=== PATIENT | male | born 1950 | race Caucasian/White ===

== ENCOUNTER 2017-03-16 08:56 | Outpatient (CLI) | payer MEDICARE, OTHER ==
--- NOTE | 2017-03-16 12:19 | MRI ---
MRI OF THE LEFT KNEE WITHOUT CONTRAST: INDICATION: Left knee pain. COMPARISON: Left knee radiograph dated 10/18/11. FINDINGS: There is a large focus of near full-thickness delamination involving the lateral patellar facet measu ring 2 cm on image 19 of series 3. There are small marginal osteophytes affecting all major compartm ents of the knee. There is diffuse moderate chondrosis involving the medial femorotibial joint carmelina rtment. There is a complex degenerative-type tear with a predominant horizontal component involving the body and posterior horn of the medial meniscus. There is a horizontally oriented tear involving the body of the lateral meniscus. The ACL, PCL, MCL, LCLC, and extensor mechanism are intact. The IT band and popliteus appear within normal limits. No Don's cyst is evident. No enlarged lymph nodes are present. IMPRESSION: 1. Mild osteoarthrosis of the left knee. 2. Medial and lateral meniscal tears. 3. Near full-thickness area of delamination involving the lateral patellar facet measuring up to 2 c m. POS: [facility]
== END 2017-03-16 08:57 | disposition home or self-care (01) ==
LOC: SCSMRI 08:56
PROVIDERS: ATTEND Orthopaedic Surgery
DX: M25.562 Pain in left knee (principal); M17.12 Unilateral primary osteoarthritis, left knee; M23.201 Derangement of unspecified lateral meniscus due to old tear or injury, left knee; M23.204 Derangement of unspecified medial meniscus due to old tear or injury, left knee

== ENCOUNTER 2017-04-21 09:42 | Outpatient (CLI) | payer MEDICARE ==
[2017-04-21 14:45] LABS: Hemoglobin 16.2 g/dL (14.0-18.0); Mean Corpuscular HGB CONC 33.5 g/dL (32.0-36.0); Mean Corpuscular Hemoglobin 31.6 pg (27.0-31.0); Mean Corpuscular Volume 94.2 fl (80.0-94.0); Mean Platelet Volume 10.2 fL (7.4-10.4); Platelet Count 184 thou/uL (130-400); RBC Distribution Width 12.1 % (11.5-14.5); Red Blood Cell (RBC) Count 5.13 mill/uL (4.70-6.10); White Blood Cell (WBC) Count 6.8 thou/uL (4.8-10.8)
[2017-04-21 14:50] LABS: Prothrombin Time 12.7 SEC (12.0-14.7)
[2017-04-21 14:54] LABS: Bilirubin Negative (Negative); Blood, Urine Negative (Negative); Clarity CLEAR (Clear); Glucose, Urine (Dipstick) Negative (Negative); Leukocyte Negative (Negative); Nitrite Negative (Negative); Protein, Urine (Dipstick) Negative (Neg-Trace); Specific Gravity, Urine 1.017 (1.002-1.036); Urobilinogen 0.2 mg/dL (0.2-1.0)
[2017-04-21 15:03] LABS: Bacteria/HPF None Seen HPF (None Seen); Hyaline Casts/LPF 0-3 HYALINE CAST LPF (0-3 Hyaline); Pathc Cast-AUWi Flag 0.13 (0-2.49); RBC/HPF 0-3 HPF (0-3); Squamous Epithelial None Seen HPF (0-3); WBC/HPF None Seen HPF (0-3)
[2017-04-21 15:09] LABS: Anion Gap 16 mmol/L (10-20); BUN (Urea Nitrogen) 14 mg/dL (8.4-25.7); Calc. Creatinine Clearance 0 mL/min (70-130); Calcium 10.5 mg/dL (7.8-10.44); Carbon Dioxide 29 mmol/L (23-31); Chloride 102 mmol/L (98-107); Estimated GFR-MDRD Greater than 90; Glucose 84 mg/dL (80-115); Potassium 4.3 mmol/L (3.5-5.1); Sodium 143 mmol/L (136-145)
--- NOTE | 2017-05-15 16:37 | EKG ---
Test Reason : Blood Pressure : / mmHG Vent. Rate : 051 BPM Atrial Rate : 051 BPM P-R Int : 202 ms QRS Dur : 100 ms QT Int : 462 ms P-R-T Axes : 043 -02 018 degrees QTc Int : 425 ms Sinus bradycardia Minimal voltage criteria for LVH, may be normal variant Cannot rule out Anterior infarct , age undetermined Abnormal ECG When compared with ECG of 22-OCT-2011 08:52, No significant change was found Confirmed by DR. Tito CENTENO ([id number]) on 05/15/2017 4:37:00 PM Referred By: JUVENAL Confirmed By:DR. Tito CENTENO
== END 2017-04-21 09:43 | disposition home or self-care (01) ==
LOC: LABBT 09:42
PROVIDERS: ATTEND Orthopaedic Surgery
DX: Z01.818 Encounter for other preprocedural examination (principal); M17.12 Unilateral primary osteoarthritis, left knee
CPT/HCPCS: 80048; 81001; 85027; 85610; 86850; 86900; 86901; 87081; 93005; 93010

== ENCOUNTER 2017-04-27 07:05 | Day surgery (SDC) | payer MEDICARE ==
[2017-04-21 12:34] VITALS: BMI 30.9
--- NOTE | 2017-04-23 12:45 | HP ---
HISTORY OF PRESENT ILLNESS: The patient is a 67-year-old male with a several year history of progres sive problems with his left knee. He underwent arthroscopy and partial lateral meniscectomy by [place] proximately 6 years ago. Initially did well, but has recently developed progressive problems especia lly over the past several months. He has had no specific injury, but he has been active and he has h ad progressive symptoms, which have persisted despite rest, restriction of activities, anti-inflammat ory medications, and cortisone injections. His primary complaint is pain. He has had no definite ca tching, popping, or meniscal symptoms. The pain is now interfering with day-to-day activities includ ing walking and change in position. PAST MEDICAL HISTORY: The patient has history of type 2 diabetes, hypertension, and prostate cancer in remission. CURRENT MEDICATIONS: Include lisinopril, amlodipine, pantoprazole, Omnaris, metformin, bisoprolol, a nd rosuvastatin. ALLERGIES: He has no known allergies. FAMILY HISTORY: Otherwise unremarkable. SOCIAL HISTORY: Otherwise unremarkable. REVIEW OF SYSTEMS: Otherwise unremarkable. PHYSICAL EXAMINATION: GENERAL: Healthy male. HEENT: Unremarkable. NECK: Supple. CHEST: Clear. HEART: Regular rate and rhythm. ABDOMEN: Soft, nontender. RECTAL/GENITAL: Deferred. EXTREMITIES: Pertinent findings are of the left lower extremity. There is no pain with range of mot ion of the left hip. Examination of the left knee reveals puffiness, but no definite effusion. Ther e is tenderness and crepitus over the medial joint line. There are healed arthroscopy puncture sites . Range of motion is 0-120 degrees. Pulses 1+ with slight left antalgic gait. There is no instabil ity. Neurovascular exam is intact. LABORATORY AND X-RAY FINDINGS: X-rays of the left knee reveal tricompartmental degenerative changes and chondrocalcinosis. MRI scan of the left knee reveals degenerative medial and lateral meniscal te ars and significant degenerative changes of the medial compartment and patellofemoral joint. IMPRESSION: 1. Degenerative arthritis, left knee. 2. History of hypertension. 3. History of type 2 diabetes. 4. History of prostate cancer. PLAN: Left total knee replacement. The nature of the surgery, length of recovery, and potential com plications such as infection, loss of motion, incomplete relief, thromboembolic phenomenon, neurovasc ular injury, delayed wound healing, possible transfusion, and need for revision have been discussed i n detail with the patient and his .
[2017-04-27] MEDS ORDERED: Midazolam HCl 2 mg/2 ml Vial ONE (08:09)
[2017-04-27] MEDS ORDERED: Fentanyl 100 MCG/2 ML VIAL ONE ×4 (08:09→12:59)
[2017-04-27] MEDS ORDERED: CEFAZOLIN/Water 2 GM/20 ML SYRINGE ONE (08:13)
[2017-04-27] MEDS ORDERED: Tranexamic Acid 1,000 MG/100 ML BAG ONE ×2 (08:13→11:52)
[2017-04-27] MEDS ORDERED: Vancomycin HCl 1.5 GM in Sodium Chloride 0.9% 250 ML 300 ML IVPB SCH ×2 (08:30→21:00)
[2017-04-27] MEDS ORDERED: HYDROcodone/Acetaminophen 5/325 mg Tablet PO PRN ×2 (09:21)
[2017-04-27] MEDS ORDERED: Ketorolac Tromethamine 30 MG/ML VIAL IVP PRN ×2 (09:21→12:34)
[2017-04-27] MEDS ORDERED: traMADol HCl 50 MG TAB PO PRN ×3 (09:21→09:22)
[2017-04-27] MEDS ORDERED: Ondansetron HCl/PF 4 MG/2 ML Vial IVP PRN ×4 (09:21→12:34)
[2017-04-27] MEDS ORDERED: Zolpidem Tartrate 5 MG TAB PO PRN ×3 (09:21→12:34)
[2017-04-27] MEDS ORDERED: Promethazine HCl 25 MG/ML VIAL IM PRN ×3 (09:21→12:34)
[2017-04-27] MEDS ORDERED: Ropivacaine 0.2% 550 ML 550 ML NERVE BLCK SCH (09:21)
[2017-04-27] MEDS ORDERED: Promethazine HCl 25 MG/ML VIAL SLOW IVP PRN ×2 (09:22→10:44)
[2017-04-27] MEDS ORDERED: HYDROcodone/Acetaminophen 10/325 mg Tablet PO PRN ×2 (09:22)
[2017-04-27] MEDS ORDERED: Acetaminophen 325 MG TAB PO PRN (09:22)
[2017-04-27] MEDS ORDERED: Fentanyl 100 MCG/2 ML VIAL SLOW IVP PRN ×2 (09:22)
[2017-04-27] MEDS ORDERED: diphenhydrAMINE 25 MG CAP PO PRN ×2 (09:22→12:34)
[2017-04-27] MEDS ORDERED: Fentanyl 100 MCG/2 ML VIAL IV PRN (09:22)
[2017-04-27] MEDS ORDERED: Bupivacaine/Epinephrine 0.25% 30 ML VIAL ONE (09:24)
[2017-04-27] MEDS ORDERED: Lidocaine 1% w/Epinephrine 1:200K 30 ML VIAL ONE (09:24)
--- NOTE | 2017-04-27 11:44 | OP ---
DATE OF PROCEDURE: 04/27/2017 PREOPERATIVE DIAGNOSIS: End-stage tricompartmental osteoarthritis, left knee. POSTOPERATIVE DIAGNOSIS: End-stage tricompartmental osteoarthritis, left knee. OPERATIVE PROCEDURE: Cemented cruciate-sparing computer-assisted navigated left total knee arthropla sty. SURGEON: Marv Staples M.D. FARM ASSISTANT: Long Ray PA-C. ANESTHESIA: General via laryngeal mask airway augmented with indwelling abductor canal, peripheral b lock and a single shot sciatic block and local infiltration with Marcaine. COMPONENTS USED: [employer] Triathlon size 5 cruciate-sparing cemented femoral component, s ize 5 universal cemented primary tibial baseplate, 9 mm polyethylene fixed bearing insert, and A32 pa tellar button. TOURNIQUET TIME: 80 minutes at 300 mmHg. FINDINGS: End-stage severe degenerative tricompartmental disease, bone on bone arthrosis, periarticu lar osteophyte formation, large serous effusion, hypertrophic synovium. DRAINS: None. SPECIMENS: None. COMPLICATIONS: None. COUNTS: Correct. ESTIMATED BLOOD LOSS: Less than 100 mL. INDICATIONS FOR SURGERY: Akash is a 67-year-old white male who has had progressive knee pain ampli fied with standing and walking for the last 5-7 years. He has failed conservative management and ngoc cted to proceed with total knee arthroplasty as definitive treatment for his pain. PROCEDURE IN DETAIL: After informed consent was obtained in the preoperative holding area. The parisa ent was taken to the operative suite where general anesthesia was induced. Once adequate level of ge neral anesthesia was obtained, the patient was positioned and a well-padded tourniquet was placed marla und the left proximal thigh. The left lower extremity was then prepped and draped in the usual steri le fashion. Prior to exsanguination, a time out was called and all members of the surgical team agre ed upon site, surgeon, and patient. The extremity was then exsanguinated and the tourniquet was rais ed. A midline longitudinal incision was then made directly over the patella extending two fingerbrea dths above the superior pole of the patella and two fingerbreadths inferior to the inferior patellar pole of the patella. Deeper subcutaneous layers were dissected sharply and local bleeding was contro lled with Bovie electrocautery. A quad tendon longitudinal split was then made sharply and a median parapatellar arthrotomy was carried out both sharp and with Bovie electrocautery, carried down to one fingerbreadth medial to the tibial tubercle. The knee was then placed into flexion and the patella was everted nicely, and a copious fat pad ectomy was performed allowing for greater exposure of the t ibia. The computer-assisted distal femoral fiducial was then placed and pinned firmly, and the dista l femoral cutting guide was pinned firmly into place. The oscillating saw was then used to remove th e appropriate amount of bone. The 4-in-1 cutting block was then placed on the distal femur and the o scillating saw was used to remove the appropriate amount of bone off of the anterior, posterior, and chamfer cuts. After completion of the chamfer cuts, the box-cutting guide was placed, malleted firml y into place and pinned securely, and an osteotome was used to make the distal cut and the oscillatin g saw was then used to make the medial and lateral box cuts. This came out quite nicely and was brad megha with Bovie electrocautery, and the oscillating saw was then used to broaden the lateral medial wa lls of the box cut. After completion of bone cuts, the anterior cruciate ligament was resected sharp ly and the posterior cruciate ligament retractor was placed and the tibia was subluxed for better exp osure. Partial meniscectomies were carried out, and the tibial computer-assisted fiducial was pinned , and the cutting guide was placed. Oscillating saw was then used to remove the bone with Hohmann re tractors used to take care and protect the collateral ligaments. After the tibial resection was perf ormed, a laminar electrical research engineer was placed in between the freshened bone cuts. The knee placed at 90 degre es and further bilateral meniscectomies were carried out, and the curved osteotome and curettage was used to remove any excess bone spurs in the posterior compartment. The trial femoral component, tibi al baseplate were placed with the appropriate polyethylene trial insert with an appropriate polyethyl abel spacer and patellar button. The knee was taken through full range of motion with flexion and ext ension from 0-90 degrees and patellar broach squarely in the trochlea without any squinting or sublu xation noted. The knee was also stable to varus and valgus stressing at 0, 15, 45, and 90 degrees of flexion. The drawer was negative. All trial components were then removed and the keel punch was use d to provide the appropriate defect in the tibia with a mallet. The freshened bone cuts were copious ly irrigated with pulsatile lavage of about 1-1/2 liters to remove all excess debris. The freshened bone cuts were then dried and with suction and lap sponge. The knee was placed in flexion and retrac tors were placed to provide access to all bone cuts. Tobramycin impregnated methyl methacrylate ceme nt was then placed on the freshened bone cuts and implants which were malleted firmly into place. Cu rettage and Bowdle elevators were used to remove any excess bone cement. The knee was placed into ful l extension and the patellar button was placed under compression, and the cement was allowed to cure. Once completed, the components were again taken through full range of motion and copious irrigation of the knee was carried out with another liter of normal saline. All components were inspected full y with full range of motion and varus and valgus stressing. There was no laxity noted and full extens ion was observed clinically. Primary closure was accomplished with #2 interrupted Vicryl stitch of t he arthrotomy defect. This was oversewn with a #2 running Quill barbed stitch. The subcutaneous lay er was then closed with a running 0 barbed Monocryl stitch and skin closure accomplished with a runni ng subcuticular 3-0 Monocryl barbed Quill stitch and augmented with cement on the skin. Tourniquet w as lowered. Good spontaneous return of distal pulses was noted clinically and a sterile dressing was applied to the incision. The procedure was terminated without any complications. The patient was a wakened in the operative suite and taken to the recovery room in stable condition.
[2017-04-27] MEDS ORDERED: Tranexamic Acid 1,000 MG in Sodium Chloride 0.9% 100 ML IVPB SCH (11:45)
[2017-04-27] MEDS ORDERED: Sildenafil Citrate [Viagra] 100 MG PO PRN (12:00)
[2017-04-27] MEDS ORDERED: Azelastine 137 MCG/Spray 30 ML NS PRN (12:15)
[2017-04-27] MEDS ORDERED: Fentanyl 5000 MCG/250 ML CADD IV PRN (12:34)
[2017-04-27] MEDS ORDERED: Naloxone HCl 0.4 mg/ml Vial IV PRN (12:34)
[2017-04-27] MEDS ORDERED: diphenhydrAMINE 50 MG/ML VIAL IM/IV PRN (12:34)
--- NOTE | 2017-04-27 12:51 | RAD ---
LEFT KNEE 2 VIEWS: HISTORY: Postop total knee. COMPARISON: Knee radiographs of 10/18/11. FINDINGS: Satisfactory appearance of postoperative left total knee. Expected postoperative gastrocnemius. IMPRESSION: Satisfactory appearance left total knee arthroplasty and patellar resurfacing. POS: [facility]
[2017-04-27] MEDS ORDERED: Promethazine HCl 25 MG/ML VIAL ONE (13:08)
[2017-04-27] MEDS ORDERED: Ropivacaine 0.5% HCl/PF (150 MG/30 ML VIAL) ONE (13:24)
[2017-04-27] MEDS ORDERED: Ropivacaine 0.2% HCl/PF (40 MG/20 ML VIAL) ONE (13:24)
[2017-04-27] MEDS ORDERED: fentaNYL Citrate/PF 2,000 MCG in Sodium Chloride 0.9% 60 ML IV PRN (13:30)
[2017-04-27] MEDS ORDERED: PROPOFOL 200 MG/20 ML VIAL ONE (13:34)
[2017-04-27] MEDS ORDERED: Lidocaine 1% PF 5 ML VIAL ONE (13:34)
[2017-04-27] MEDS ORDERED: Ondansetron HCl/PF 4 MG/2 ML Vial ONE (13:34)
[2017-04-27] MEDS ORDERED: ePHEDrine/0.9% NaCl/PF SYRINGE 50 mg/10 ml ONE (13:34)
[2017-04-27] MEDS ORDERED: Ketorolac Tromethamine 30 MG/ML VIAL ONE (13:34)
[2017-04-27] MEDS ORDERED: Ketorolac Tromethamine 30 MG/ML VIAL IVP SCH (14:00)
[2017-04-27] MEDS: Sodium Chloride 0.9% 1,000 ML IV SCH ×2 (14:55→17:30)
--- NOTE | 2017-04-27 15:51 | PDOC.PN ---
- Subjective Encounter Start Date: 04/27/17 Encounter Start Time: 15:30 Subjective: no sob, is ambulating with PT and rw - Objective MAR Reviewed: Yes Vital Signs & Weight: Vital Signs (12 hours) Temp Pulse Resp BP Pulse Ox 04/27/17 09:13 97.2 F L 54 L 18 135/80 97 Weight Weight 222 lb Additional Labs: Accuchecks 04/27/17 08:44 POC Glucose 158 H Phys Exam - Physical Examination HEENT: PERRLA, moist MMs Neck: no JVD, supple Respiratory: no wheezing, no rales Cardiovascular: RRR, no significant murmur Gastrointestinal: soft, non-tender, positive bowel sounds Musculoskeletal: no edema, pulses present left knee in dressing Neurological: non-focal, moves all 4 limbs Psychiatric: A&O x 3 Dx/Plan (1) HTN (hypertension) Code(s): I10 - ESSENTIAL (PRIMARY) HYPERTENSION Status: Chronic Qualifiers: Hypertension type: essential hypertension Qualified Code(s): I10 - Essential (primary) hypertension (2) DM type 2 (diabetes mellitus, type 2) Status: Chronic Qualifiers: Diabetes mellitus complication status: with unspecified complications Diabetes mellitus custodial insulin use: without buttermilk drier operator use Qualified Code( s): E11.8 - Type 2 diabetes mellitus with unspecified complications (3) Dyslipidemia Code(s): E78.5 - HYPERLIPIDEMIA, UNSPECIFIED Status: Chronic (4) Status post total left knee replacement Code(s): Z96.652 - PRESENCE OF LEFT ARTIFICIAL KNEE JOINT Status: Acute - Plan post op left tkr recovering well, ropivacaine nerve block, toradol/fentanyl -: is on asp bid for post knee dvt prophylaxis -: on lisinopril, norvasc and bisoprolol for htn -: metformin for dm, crestor -: will f/u * . Review of Systems - Medications/Allergies Allergies/Adverse Reactions: Allergies Allergy/AdvReac Type Severity Reaction Status Date / Time No Known Allergies Allergy Verified 04/21/17 12:35 Medications: Current Medications Acetaminophen (Tylenol) 650 mg PO Q4H PRN PRN Reason: URBINA/ T > 101F; Mild Pain (1-3) Amlodipine Besylate (Norvasc) 10 mg PO QPM [facility] Aspirin (Ecotrin) 81 mg PO BID [facility] Bisoprolol Fumarate (Zebeta) 10 mg PO DAILY [facility] Cefazolin Sodium (Ancef) 2 gm SLOW IVP Q8HR [facility] Stop: 04/27/17 22:01 Coenzyme Q10 (Coenzyme Q10) 100 mg PO BID [facility] Diphenhydramine HCl (Benadryl) 25 mg PO Q6H PRN PRN Reason: Itching Diphenhydramine HCl (Benadryl) 25 mg IM/IV Q3H PRN PRN Reason: Itching Diphenhydramine HCl (Benadryl) 25 mg PO Q3H PRN PRN Reason: Itching Fentanyl (Sublimaze) 50 mcg IV Q1H PRN PRN Reason: breakthrough pain Ferrous Gluconate (Fergon) 324 mg PO BID [facility] Ropivacaine (Ropivacaine 0.2% 550 Ml) 550 mls @ 10 mls/hr NERVE BLCK INF [facility] Sodium Chloride (Normal Saline 0.9%) 1,000 mls @ 100 mls/hr IV .Q10H [facility] Last Admin: 04/27/17 14:55 Dose: Not Given Vancomycin HCl 1.5 gm/ Sodium (Chloride) 300 mls @ 200 mls/hr IVPB 2100 [facility] Stop: 04/27/17 22:29 Fentanyl Citrate 2,000 mcg/ (Sodium Chloride) 100 mls @ 0 mls/hr IV INF PRN; As Directed PRN Reason: Pain Ketorolac Tromethamine (Toradol) 15 mg IVP Q6H PRN PRN Reason: Moderate Pain (4-6) Stop: 04/30/17 09:22 Ketorolac Tromethamine (Toradol) 15 mg IVP Q6H PRN PRN Reason: Moderate Pain 4-6 Stop: 04/30/17 12:35 Lisinopril (Zestril) 40 mg PO QPM [facility] Loratadine (Claritin) 10 mg PO QPM [facility] Metformin HCl (Glucophage Xr) 500 mg PO BID[facility] Multivitamins (Theragran) 1 tab PO DAILY [facility] Naloxone HCl (Narcan) 0.2 mg IV Q5MIN PRN PRN Reason: RR <8 or pt obtun/unarousable Ondansetron HCl (Zofran) 4 mg IVP Q6H PRN PRN Reason: Nausea/Vomiting Ondansetron HCl (Zofran) 4 mg IVP Q6H PRN PRN Reason: Nausea/Vomiting Pantoprazole Sodium (Protonix) 20 mg PO DAILY [facility] Azelastine/Fluticasone [Dymista Nasal [place]] 0 each EA NARE BID PRN PRN Reason: ALLERGIES Flaxseed Oil 1,300 (Mg) 0 each PO BID [facility] Sildenafil Citrate [ (Viagra] 100 Mg) 0 each PO DAILY PRN PRN Reason: IMPOTENCE Promethazine HCl (Phenergan) 12.5 mg IM Q4H PRN PRN Reason: Nausea Promethazine HCl (Phenergan) 12.5 mg SLOW IVP Q4H PRN PRN Reason: Nausea/Vomiting Promethazine HCl (Phenergan) 12.5 mg IM Q4H PRN PRN Reason: Nausea/Vomiting Rosuvastatin Calcium (Crestor) 10 mg PO QPM [facility] Senna/Docusate Sodium (Senokot S) 2 tab PO BID [facility] Sodium Chloride (Flush - Normal Saline) 10 ml IVF PRN PRN PRN Reason: Saline Flush Zolpidem Tartrate (Ambien) 5 mg PO HSPRN PRN PRN Reason: Insomnia
[2017-04-27] MEDS: CEFAZOLIN/Water 2 GM/20 ML SYRINGE SLOW IVP SCH ×2 (16:11→22:50)
[2017-04-27] MEDS: metFORMIN XR 500 MG TAB PO SCH (16:13)
[2017-04-27] MEDS ORDERED: Fluticasone Propionate Nasal Spray 16 gm Bottle NASAL PRN (20:05)
[2017-04-27] MEDS: Ubidecarenone 50 MG CAP PO SCH (20:27)
[2017-04-27] MEDS: Aspirin 81 mg Enteric Coated Tablet PO SCH (20:27)
[2017-04-27] MEDS ORDERED: Loratadine 10 MG TAB PO SCH (21:00)
[2017-04-27] MEDS ORDERED: FLAXSEED OIL 1300 MG PO SCH (21:00)
[2017-04-27] MEDS ORDERED: Lisinopril 20 MG TAB PO SCH (21:00)
[2017-04-27] MEDS ORDERED: Rosuvastatin 10 MG TAB PO SCH (21:00)
[2017-04-27] MEDS ORDERED: Amlodipine 10 MG TAB PO SCH (21:00)
[2017-04-27] MEDS ORDERED: Aspirin 325 MG TAB PO SCH (21:00)
[2017-04-28 04:17] LABS: Hemoglobin 12.7 g/dL (14.0-18.0); Mean Corpuscular HGB CONC 34.4 g/dL (32.0-36.0); Mean Corpuscular Hemoglobin 32.2 pg (27.0-31.0); Mean Corpuscular Volume 93.6 fl (80.0-94.0); Mean Platelet Volume 10.5 fL (7.4-10.4); Platelet Count 136 thou/uL (130-400); RBC Distribution Width 11.9 % (11.5-14.5); Red Blood Cell (RBC) Count 3.94 mill/uL (4.70-6.10)
[2017-04-28] MEDS: Sodium Chloride 0.9% 1,000 ML IV SCH (04:32)
[2017-04-28] MEDS: metFORMIN XR 500 MG TAB PO SCH (08:52)
[2017-04-28] MEDS: Ubidecarenone 50 MG CAP PO SCH (08:52)
[2017-04-28] MEDS: Aspirin 81 mg Enteric Coated Tablet PO SCH (08:54)
[2017-04-28] MEDS ORDERED: Lisinopril 20 MG TAB PO SCH (09:00)
[2017-04-28] MEDS ORDERED: Multivit, Therapeutic 1 TAB PO SCH (09:00)
[2017-04-28] MEDS ORDERED: Bisoprolol Fumarate 5 MG TAB PO SCH (09:00)
[2017-04-28] MEDS ORDERED: Ferrous Gluconate 324 MG TAB PO SCH (09:00)
[2017-04-28] MEDS ORDERED: Senokot S 8.6-50 MG TAB PO SCH (09:00)
[2017-04-28] MEDS ORDERED: HYDROcodone/Acetaminophen 10/325 mg Tablet PO PRN ×2 (09:53)
[2017-04-28] MEDS ORDERED: Ketorolac Tromethamine 30 MG/ML VIAL IVP SCH (12:00)
[2017-04-28] MEDS ORDERED: Acetaminophen 1,000 MG in Premix Bag 1 BAG IVPB SCH (12:00)
--- NOTE | 2017-04-28 12:27 | PDOC.PN ---
- Subjective Encounter Start Date: 04/28/17 Encounter Start Time: 08:30 Subjective: no chest pain or sob - Objective MAR Reviewed: Yes Vital Signs & Weight: Vital Signs (12 hours) Temp Pulse Resp BP BP Pulse Ox 04/28/17 08:54 139/77 04/28/17 08:32 97.9 F 77 18 139/77 95 04/28/17 08:00 97.9 F 77 18 Weight Weight 222 lb I&O: 04/27/17 04/28/17 04/29/17 06:59 06:59 06:59 Intake Total 3500 Output Total 1200 Balance 2300 Result Diagrams: 04/28/17 03:12 Phys Exam - Physical Examination HEENT: PERRLA, moist MMs Neck: no JVD, supple Respiratory: no wheezing, no rales Cardiovascular: RRR, no significant murmur Gastrointestinal: soft, no distention, positive bowel sounds Musculoskeletal: pulses present Neurological: non-focal, moves all 4 limbs Dx/Plan (1) HTN (hypertension) Code(s): I10 - ESSENTIAL (PRIMARY) HYPERTENSION Status: Chronic Qualifiers: Hypertension type: essential hypertension Qualified Code(s): I10 - Essential (primary) hypertension (2) DM type 2 (diabetes mellitus, type 2) Status: Chronic Qualifiers: Diabetes mellitus complication status: with unspecified complications Diabetes mellitus senior living insulin use: without termite inspector use Qualified Code( s): E11.8 - Type 2 diabetes mellitus with unspecified complications (3) Dyslipidemia Code(s): E78.5 - HYPERLIPIDEMIA, UNSPECIFIED Status: Chronic (4) Status post total left knee replacement Code(s): Z96.652 - PRESENCE OF LEFT ARTIFICIAL KNEE JOINT Status: Acute - Plan hemostable, still has nr block, fentanyl, toradol prn -: htn, dm is stable -: on asp bid for dvt prophylaxis -: working with PT, likely dc plan home today? -: Hb is 12g, continue lisinopril, norvasc, oral iron and metformin * . Review of Systems - Medications/Allergies Allergies/Adverse Reactions: Allergies Allergy/AdvReac Type Severity Reaction Status Date / Time No Known Allergies Allergy Verified 04/21/17 12:35 Medications: Current Medications Acetaminophen (Tylenol) 650 mg PO Q4H PRN PRN Reason: URBINA/ T > 101F; Mild Pain (1-3) Hydrocodone Bitart/Acetaminophen (Rapidan 10/325) 1 tab PO Q4H PRN PRN Reason: Pain Hydrocodone Bitart/Acetaminophen (Rapidan 10/325) 2 tab PO Q4H PRN PRN Reason: Pain Amlodipine Besylate (Norvasc) 10 mg PO QPM [facility] Last Admin: 04/27/17 20:26 Dose: 10 mg Aspirin (Ecotrin) 81 mg PO BID [facility] Last Admin: 04/28/17 08:54 Dose: 81 mg Azelastine HCl (Azelastine) 0 ml NS BID PRN PRN Reason: ALLERGIES Bisoprolol Fumarate (Zebeta) 10 mg PO DAILY [facility] Coenzyme Q10 (Coenzyme Q10) 100 mg PO BID [facility] Last Admin: 04/28/17 08:52 Dose: 100 mg Diphenhydramine HCl (Benadryl) 25 mg PO Q6H PRN PRN Reason: Itching Diphenhydramine HCl (Benadryl) 25 mg IM/IV Q3H PRN PRN Reason: Itching Diphenhydramine HCl (Benadryl) 25 mg PO Q3H PRN PRN Reason: Itching Fentanyl (Sublimaze) 50 mcg IV Q1H PRN PRN Reason: breakthrough pain Ferrous Gluconate (Fergon) 324 mg PO BID [facility] Last Admin: 04/28/17 08:53 Dose: 324 mg Fluticasone Propionate (Flonase Nasal [place]) 0 gm NASAL BID PRN PRN Reason: ALLERGIES Ropivacaine (Ropivacaine 0.2% 550 Ml) 550 mls @ 10 mls/hr NERVE BLCK INF [facility] Sodium Chloride (Normal Saline 0.9%) 1,000 mls @ 100 mls/hr IV .Q10H [facility] Last Admin: 04/28/17 04:32 Dose: Not Given Fentanyl Citrate 2,000 mcg/ (Sodium Chloride) 100 mls @ 0 mls/hr IV INF PRN; As Directed PRN Reason: Pain Acetaminophen 1,000 mg/ Device 100 mls @ 400 mls/hr IVPB Q6HR [facility] Stop: 04/29/17 12:01 Last Admin: 04/28/17 12:05 Dose: 100 mls Ketorolac Tromethamine (Toradol) 15 mg IVP Q6H PRN PRN Reason: Moderate Pain 4-6 Stop: 04/30/17 12:35 Ketorolac Tromethamine (Toradol) 15 mg IVP Q6HR [facility] Stop: 04/29/17 12:01 Last Admin: 04/28/17 12:05 Dose: 15 mg Lisinopril (Zestril) 20 mg PO BID [facility] Last Admin: 04/28/17 08:54 Dose: 20 mg Loratadine (Claritin) 10 mg PO QPM [facility] Last Admin: 04/27/17 20:27 Dose: 10 mg Metformin HCl (Glucophage Xr) 500 mg PO BID-[facility] Last Admin: 04/28/17 08:52 Dose: 500 mg Multivitamins (Theragran) 1 tab PO DAILY [facility] Last Admin: 04/28/17 08:54 Dose: 1 tab Naloxone HCl (Narcan) 0.2 mg IV Q5MIN PRN PRN Reason: RR <8 or pt obtun/unarousable Ondansetron HCl (Zofran) 4 mg IVP Q6H PRN PRN Reason: Nausea/Vomiting Last Admin: 04/28/17 09:00 Dose: 4 mg Pantoprazole Sodium (Protonix) 20 mg PO DAILY [facility] Last Admin: 04/28/17 08:53 Dose: 20 mg Promethazine HCl (Phenergan) 12.5 mg SLOW IVP Q4H PRN PRN Reason: Nausea/Vomiting Promethazine HCl (Phenergan) 12.5 mg IM Q4H PRN PRN Reason: Nausea/Vomiting Rosuvastatin Calcium (Crestor) 10 mg PO QPM [facility] Last Admin: 04/27/17 20:27 Dose: 10 mg Senna/Docusate Sodium (Senokot S) 2 tab PO BID [facility] Last Admin: 04/28/17 08:52 Dose: 2 tab Sodium Chloride (Flush - Normal Saline) 10 ml IVF PRN PRN PRN Reason: Saline Flush Zolpidem Tartrate (Ambien) 5 mg PO HSPRN PRN PRN Reason: Insomnia
[2017-04-28 17:36] VITALS: BP 188/98; TEMP 98.2
== END 2017-04-28 18:26 | disposition home or self-care (01) ==
LOC: SDC 07:05 → EDSTATUS 08:00 → SJJU 09:22 → SDC 04-28 18:26
PROVIDERS: ATTEND Orthopaedic Surgery
PROC: 0SRD069 Replacement of Left Knee Joint with Oxidized Zirconium on Polyethylene Synthetic Substitute, Cemented, Open Approach (ICD-10-PCS; principal; 2017-04-27)
DX: M17.12 Unilateral primary osteoarthritis, left knee (principal); M25.762 Osteophyte, left knee; M67.262 Synovial hypertrophy, not elsewhere classified, left lower leg; M25.462 Effusion, left knee; I10 Essential (primary) hypertension; E11.9 Type 2 diabetes mellitus without complications; E78.5 Hyperlipidemia, unspecified; Z79.84 Long term (current) use of oral hypoglycemic drugs; Z79.1 Long term (current) use of non-steroidal anti-inflammatories (NSAID); Z79.82 Long term (current) use of aspirin; Z79.51 Long term (current) use of inhaled steroids; Z79.899 Other long term (current) drug therapy; Z90.79 Acquired absence of other genital organ(s); Z98.890 Other specified postprocedural states; Z85.46 Personal history of malignant neoplasm of prostate
CPT/HCPCS: 27447; 73560; 82962; 85027; 97110; 97116 ×2; 97139 ×2; 97150; 97530 ×2; A4306; C1713; C1776; G8978; G8979; J3010 ×2; 36415; 36416; J0131; J1885; J2001; J2250; J2405; J2550; J2704; J2795; J3370; J7050

== ENCOUNTER 2020-03-21 06:35 | Outpatient (CLI) | payer MEDICARE ==
[2020-03-21 11:54] LABS: Bilirubin Neg (Negative); Blood, Urine Negative (Negative); Clarity Clear (Clear); Glucose, Urine (Dipstick) Normal (Negative); Ketone, Urine Negative (Negative); Leukocyte Negative (Negative); Mean Corpuscular HGB CONC 33.5 G/DL (32.0-36.0); Mean Corpuscular Hemoglobin 30.2 PG (27.0-33.0); Mean Corpuscular Volume 90.2 fl (80.0-100.0); Mean Platelet Volume 12.9 fl (7.4-10.4); Nitrite Negative (Negative); Platelet Count 185 10x3/uL (130-400); Protein, Urine (Dipstick) Negative (Neg-Trace); RBC Distribution Width 12.7 % (11.5-14.5); Specific Gravity, Urine 1.005 (1.002-1.036); Urobilinogen Normal mg/dL (Less than 2); White Blood Cell (WBC) Count 5.9 10x3/uL (4.5-11.0)
[2020-03-21 12:09] LABS: Bacteria/HPF None Seen HPF (None Seen); RBC/HPF 0-3 HPF (0-3); Squamous Epithelial None Seen HPF (0-3); WBC/HPF None Seen HPF (0-3)
[2020-03-21 12:23] LABS: PTT 29.6 sec (22.0-33.0); Prothrombin Time 10.8 sec (9.5-12.1)
[2020-03-21 12:26] LABS: Anion Gap 14 mmol/L (10-20); BUN (Urea Nitrogen) 12 mg/dL (8.4-25.7); Calc. Creatinine Clearance 0 mL/min (70-130); Calcium 9.4 mg/dL (7.8-10.44); Carbon Dioxide 28 mmol/L (23-31); Chloride 101 mmol/L (98-107); Glucose 148 mg/dL (80-115); Potassium 4.2 mmol/L (3.5-5.1); Sodium 139 mmol/L (136-145)
[2020-03-21 20:51] LABS: SARS-CoV-2 MS2 Positive; SARS-CoV-2 N Gene Negative; SARS-CoV-2 S Gene Negative; SARS-CoV-2 by NAA Not Detected (NotDetected); SARS-CoV-2 orf1ab Negative
== END 2020-03-21 06:36 | disposition home or self-care (01) ==
LOC: LABBT 06:35
PROVIDERS: ATTEND Urology
DX: Z01.812 Encounter for preprocedural laboratory examination (principal); Z20.828 Contact with and (suspected) exposure to other viral communicable diseases; R31.9 Hematuria, unspecified; N32.9 Bladder disorder, unspecified
CPT/HCPCS: 80048; 81001; 85027; 85610; 85730; 87086; U0003; 87635

== ENCOUNTER 2020-03-26 08:14 | Day surgery (SDC) | payer MEDICARE ==
[2020-03-23 11:45] VITALS: BMI 31.5
[2020-03-26] MEDS ORDERED: Lidocaine 1% PF 5 ML VIAL ONE (09:31)
[2020-03-26] MEDS ORDERED: PROPOFOL 200 MG/20 ML VIAL ONE (09:31)
[2020-03-26] MEDS ORDERED: Iothalamate Meglumine 60% 50 ML VIAL FS ONE (10:25)
[2020-03-26] MEDS ORDERED: Fentanyl 100 MCG/2 ML VIAL ONE (10:33)
--- NOTE | 2020-03-26 11:57 | OP ---
DATE OF PROCEDURE: 03/26/2020 PREOPERATIVE DIAGNOSES: Hematuria, bladder lesions. POSTOPERATIVE DIAGNOSES: Hematuria, bladder lesions. PROCEDURES PERFORMED: Cysto, bladder biopsy. ANESTHESIA: General. ESTIMATED BLOOD LOSS: Minimal. DRAINS: None. PATHOLOGY SENT: Bladder biopsies. FINDINGS: He has abnormal patch of bladder mucosa from the trigone, not involving the ureteral orifice, and slightly toward the bladder neck. It was biopsied x2 and fulgurated. DESCRIPTION OF PROCEDURE: After obtaining written and verbal consent from the patient, after receiving IV antibiotics, he was taken to the operating suite. He was placed in supine position on treatment table. PlexiPulses were placed in his lower extremities and turned on. He was given a general anesthetic and oral obturator intubation, placed in dorsal lithotomy position, sterilely prepped and draped. Cystoscopy was attempted with a 22-Thai. I could not pass this, so it was gently dilated up to 26-Thai with [place] sounds, so 22-Frech was then easily passed. All the way into the bladder, he does not have a prostate due to prior prostate surgery. There was no anastomotic stricture. The bladder was filled and emptied number of times, this was examined with both the 30- and 70-degree lens. The findings were as above. A cold cup biopsy forceps to biopsy this region x2 and then cauterized, staying clear of the ureteral orifice. There was good hemostasis. The bladder was drained. The instruments were removed. Ramirez catheter was not left indwelling. He was awakened, extubated, taken by stretcher to recovery room. Job ID: [id number]
== END 2020-03-26 12:45 | disposition home or self-care (01) ==
LOC: SDC 08:14
PROVIDERS: ATTEND Urology
PROC: 0TBB8ZX Excision of Bladder, Via Natural or Artificial Opening Endoscopic, Diagnostic (ICD-10-PCS; principal; 2020-03-26)
DX: D30.3 Benign neoplasm of bladder (principal); N30.30 Trigonitis without hematuria; I10 Essential (primary) hypertension; E11.9 Type 2 diabetes mellitus without complications; K21.9 Gastro-esophageal reflux disease without esophagitis; Z79.82 Long term (current) use of aspirin; Z79.84 Long term (current) use of oral hypoglycemic drugs; Z79.899 Other long term (current) drug therapy
CPT/HCPCS: 88305; 93005; 93010; J0690; J2704; J3010

== ENCOUNTER 2020-04-04 06:22 | Outpatient (CLI) | payer MEDICARE ==
[2020-04-04 08:51] LABS: Hemoglobin 15.3 g/dL (14.0-18.0); Mean Corpuscular HGB CONC 33.6 G/DL (32.0-36.0); Mean Corpuscular Hemoglobin 30.4 PG (27.0-33.0); Mean Corpuscular Volume 90.7 fl (80.0-100.0); Mean Platelet Volume 12.5 fl (7.4-10.4); Platelet Count 165 10x3/uL (130-400); RBC Distribution Width 12.7 % (11.5-14.5); Red Blood Cell (RBC) Count 5.03 10x6/uL (4.40-5.80); White Blood Cell (WBC) Count 5.7 10x3/uL (4.5-11.0)
[2020-04-04 09:04] LABS: Anion Gap 16 mmol/L (10-20); BUN (Urea Nitrogen) 16 mg/dL (8.4-25.7); Calc. Creatinine Clearance 0 mL/min (70-130); Calcium 9.6 mg/dL (7.8-10.44); Carbon Dioxide 25 mmol/L (23-31); Chloride 104 mmol/L (98-107); Glucose 155 mg/dL (80-115); Potassium 4.4 mmol/L (3.5-5.1); Sodium 141 mmol/L (136-145)
[2020-04-04 09:08] LABS: PTT 29.5 sec (22.0-33.0); Prothrombin Time 10.3 sec (9.5-12.1)
[2020-04-04 12:33] LABS: EPI 152 SEC (67-199); Platelet Count 165 thou/uL (130-400)
[2020-04-04 18:34] LABS: SARS-CoV-2 MS2 Positive; SARS-CoV-2 N Gene Negative; SARS-CoV-2 S Gene Negative; SARS-CoV-2 by NAA Not Detected (NotDetected); SARS-CoV-2 orf1ab Negative
== END 2020-04-04 06:23 | disposition home or self-care (01) ==
LOC: LABBT 06:22
PROVIDERS: ATTEND Urology
DX: Z01.812 Encounter for preprocedural laboratory examination (principal); Z20.828 Contact with and (suspected) exposure to other viral communicable diseases; N20.0 Calculus of kidney
CPT/HCPCS: 80048; 85027; 85576; 85610; 85730; U0003; 87635

== ENCOUNTER 2020-04-11 06:01 | Day surgery (SDC) | payer MEDICARE ==
[2020-04-09 15:01] VITALS: BMI 202.5
[2020-04-11] MEDS ORDERED: Iothalamate Meglumine 60% 50 ML VIAL FS ONE ×2 (06:33→17:32)
[2020-04-11] MEDS ORDERED: Fentanyl 100 MCG/2 ML VIAL ONE ×4 (07:17→10:20)
[2020-04-11] MEDS ORDERED: Midazolam HCl 2 mg/2 ml Vial ONE (07:17)
[2020-04-11] MEDS ORDERED: Phenazopyridine HCl 100 MG TAB ONE (09:27)
--- NOTE | 2020-04-11 09:45 | OP ---
DATE OF PROCEDURE: 04/11/2020 PREOPERATIVE DIAGNOSIS: Left renal pelvic stone. POSTOPERATIVE DIAGNOSIS: Left renal pelvic stone. PROCEDURES PERFORMED: Left extracorporeal shockwave lithotripsy, cysto, left stent. ANESTHETIC: General. ESTIMATED BLOOD LOSS: Not recorded. FINDINGS: There is a 1.5 cm left renal pelvic stone treated with 2500 shocks at level 4 and 5. It did appear to fragment well and because of the size of the stone, we placed a stent and placed a 4.8 x 26 cm double-J stent with a string left attached to it exiting the urethral meatus. DESCRIPTION OF PROCEDURE: After obtaining written and verbal consent from the patient, after documenting normal preoperative blood work and after being sure, we could adequately visualize the stone on a KUB, he was taken to the operating suite. He was placed in the supine position on the treatment table. PlexiPulses were placed on his lower extremities and turned on. He was given a general anesthetic and oral obturator intubation. He was coupled to the lithotripsy unit, and the stone was placed in treatment focal point. Shockwave therapy was commenced after a few 100 shocks, a 5-minute pause was given. We then increased the kV to 4 and then alternated between 4 and 5 until 2500 shocks were given, we went at a rate of 60. Fluoroscopy was used intermittently to help with positioning as necessary as well as documenting stone fragmentation. At the end of the procedure, the head was pulled, and he had a number of stone fragments. Because of the size of the initial stone, I elected to place a stent. He was then moved to a dorsal lithotomy position. He received 2 g of Ancef IV piggyback. He was sterilely prepped and draped. Cystoscopy was performed with a 22-Hungarian sheath. This is little difficult to place because of mild meatal stenosis and he was dilated gently to 24-Hungarian with Kin sounds and then, the cystoscope was passed under direct vision with the aid of a 30-degree lens of video camera and monitor. The bladder has some healing areas on the trigone from a prior bladder biopsy. This showed a benign lesion. There was bloody efflux with some stones coming out of the left ureteral orifice. A 5-Hungarian Pollack catheter was advanced up the left ureter to just below the region of the stones and then, contrast was injected showing multiple filling defects in the renal pelvis. The guidewire was then fed up to this region and the [place] catheter was removed and a stent was placed over the guidewire, pushed up into place with aid of a pusher, so its proximal end coiled in the renal pelvis and its distal end coiled in the bladder when the wire was removed. The bladder was drained. The instruments were removed. The string was cut about 3 to 4 inches exiting urethral meatus. He was taken out of the dorsal lithotomy position, awakened, extubated, and taken by stretcher to recovery room. Job ID: [id number] [facility]
[2020-04-11] MEDS ORDERED: Ondansetron PF 4 MG/2 ML Vial ONE ×2 (10:09→11:31)
[2020-04-11] MEDS ORDERED: Morphine 4 MG/ML VIAL ONE (10:24)
[2020-04-11] MEDS ORDERED: B & O ONE (10:42)
[2020-04-11] MEDS ORDERED: Morphine 2 MG/ML VIAL ONE (10:49)
[2020-04-11] MEDS ORDERED: Iopamidol-370 76% 500 ML 1 ML ONE (10:55)
[2020-04-11] MEDS ORDERED: Promethazine HCl 25 MG/ML VIAL ONE (11:01)
[2020-04-11] MEDS ORDERED: PROPOFOL 200 MG/20 ML VIAL ONE (11:31)
[2020-04-11] MEDS ORDERED: traMADol HCl 50 MG TAB ONE ×2 (12:04→18:02)
--- NOTE | 2020-04-11 13:20 | RAD ---
RADIOGRAPH ABDOMEN 1 VIEW: DATE: 04/11/2020. TIME: 7:16 a.m. HISTORY: A 70-year-old male with calculus of kidney. COMPARISON: KUB of 02/02/2019. FINDINGS: The previously demonstrated 17 mm calculus at the lower pole of the left kidney remains. The previously seen 15 mm calculus (which may actually be 2 calculi stuck together) that was in the u pper pole of the left kidney, has dropped to the mid pole now. Multiple surgical clips in the pelvis bilaterally and centrally. Normal bowel gas pattern. IMPRESSION: 1. Nephrolithiasis. One of the left renal calculi that was previously in the upper pole has migrate d to the mid pole now. 2. Status post prostatectomy and iliac chain lymph node dissection. POS: JIN
--- NOTE | 2020-04-11 17:34 | CT ---
CT ABDOMEN AND PELVIS WITH AND WITHOUT CONTRAST: 04/11/20 Postcontrast images obtained with portal venous and delayed venous phase. INDICATIONS: Post left renal stent placement. History of prostate cancer and prostatectomy. Renal calculi. COMPARISON: Comparison made to the recent CT abdomen and pelvis performed 03/15/20. FINDINGS: Review of the noncontrast study again shows left renal calcifications. The calcification in the lower pole left kidney measures up to 1.5 cm. There are numerous tiny calcifications in the left renal pel vis. Left renal pelvis calcification appears to have been fragmented since prior study. There is a left ureteral stent noted. The stent is coiled within the bladder and the distal pigtail r esides within the mid left ureter. No definite ureteral calculus identified. No evidence of right renal calcification. Review of the postcontrast images show symmetric enhancement bilaterally. The right renal cystic lesi on again noted and the subcentimeter low density foci in the left kidney again seen. On the delayed sequence there is contrast excretion into the collecting structures. Opacification of both renal pelves and ureters. The bladder is mildly distended with contrast layering posteriorly. Jessenia ng bases are clear. Liver shows low attenuation suggesting hepatic steatosis. The liver, spleen, and pancreas otherwise u nremarkable. Adrenal glands normal. Small and large bowel loops unremarkable. Prostatectomy changes are again noted. Aorta normal caliber . Osseous structures unremarkable. IMPRESSION: 1. A left ureteral stent is in place. The stent is coiled within the bladder and the upper pigta il resides in the mid left ureter. 2. Left renal calcifications as described above. 3. Otherwise no significant change from recent exam. POS: AGW
--- NOTE | 2020-04-11 18:16 | PRG ---
DATE OF SERVICE: 04/11/2020 The patient has procedure done earlier today. He had developed pain in recovery room, was mostly bladder pelvic pain, a little bit worse in the left side. Had a low postvoid residual actually nearly zero urine that was bloody and then cleared. The pain was difficult to control. Tried oral analgesics, tried B and O suppository without much benefit. It became bad enough, came back to examine him. Abdomen was soft. No flank pain. No writhing around, just uncomfortable. No nausea, vomiting. No fevers, no chills. Some increase in blood pressure, not tachycardic. Because of the persistence of the pain, we went ahead and did a CAT scan. It showed that the left stent had migrated. It was coiled in the mid ureter and then a fairly lengthy coil of it in the bladder. There was no significant hydro, was done with contrast. It did not appear there was any obstruction, and the 15 mm stone was in very small fragments. The lower pole stone, we did not treat. At this point, we talked with the patient. His elected just to remove the stent as it was in poor position and it may have been leading to some of his pelvic pain. This was done and he had more pain after that. Again, mostly pelvic pain. He continued to urinate okay, although his urine did become a little bit bloody after removing the stent. For that reason, we actually talked about replacing the stent and actually posted him to do that. We then came to see him shortly before he would be going to the OR and at that point he had been doing well for a while, feeling better. Blood pressure was good. He was not requiring any pain medication and voiding okay. At that point, we elected not to take him back to the OR. His best chance was probably just to go home with some tramadol, some Uribel, and we put him on antibiotic while the stent was in. I would not have him take that at this point. Job ID: [id number]
== END 2020-04-11 18:31 | disposition home or self-care (01) ==
LOC: SDC 06:01
PROVIDERS: ATTEND Urology
PROC: 0TF4XZZ Fragmentation in Left Kidney Pelvis, External Approach (ICD-10-PCS; principal; 2020-04-11)
PROC: 0T778DZ Dilation of Left Ureter with Intraluminal Device, Via Natural or Artificial Opening Endoscopic (ICD-10-PCS; 2020-04-11)
DX: N20.0 Calculus of kidney (principal); I10 Essential (primary) hypertension; E11.9 Type 2 diabetes mellitus without complications; K21.9 Gastro-esophageal reflux disease without esophagitis; Z79.82 Long term (current) use of aspirin; Z79.84 Long term (current) use of oral hypoglycemic drugs; Z79.899 Other long term (current) drug therapy
CPT/HCPCS: 50590; 52332; 74018; 74178; J2270; J0690; J2250; J2405; J2550; J2704; J3010; Q9967

== ENCOUNTER 2020-09-05 08:42 | Outpatient (CLI) | payer MEDICARE ==
[2020-09-05 09:11] LABS: Estimated GFR-MDRD - POC Greater than 90
[2020-09-05] MEDS ORDERED: Iopamidol 370 76% 100 ML VIAL ONE (10:00)
[2020-09-05] MEDS ORDERED: Magnevist 469MG/ML 20 ML VIAL ONE (10:19)
== END 2020-09-05 08:43 | disposition home or self-care (01) ==
LOC: CT 08:42
PROVIDERS: ATTEND Internal Medicine
DX: G45.9 Transient cerebral ischemic attack, unspecified (principal); J34.89 Other specified disorders of nose and nasal sinuses
CPT/HCPCS: 70498; 70553; 82565; A9579; Q9967

== ENCOUNTER 2023-09-09 15:32 | Outpatient (CLI) | payer MEDICARE | END 2023-09-09 15:33 | disposition home or self-care (01) | LOC: BICCT 15:32 | PROVIDERS: ATTEND Specialist | DX: R09.81 Nasal congestion (principal); J34.89 Other specified disorders of nose and nasal sinuses; Z98.890 Other specified postprocedural states ==